=== PATIENT | female | born 1950 | race Caucasian/White ===

== ENCOUNTER 2022-10-27 16:05 | Emergency (ER) | payer OTHER ==
[~2022-10-27] VITALS: Ht 165.1 cm; Wt 117.9 kg
[2022-10-27] MEDS ORDERED: ATORVASTATIN CA40 MG PO (16:50)
[2022-10-27] MEDS ORDERED: ELIQUIS5 MG PO (16:50)
[2022-10-27] MEDS ORDERED: AMLODIPINE BESYL5 MG PO (16:50)
[2022-10-27] MEDS ORDERED: METOPROLOL TAR100 MG PO (16:50)
[2022-10-27] MEDS ORDERED: NORVASC2.5 MG PO (16:50)
== END 2022-10-27 18:25 | disposition home or self-care (01) ==
LOC: ER 16:05
DX: M25.572 Pain in left ankle and joints of left foot (principal); M25.571 Pain in right ankle and joints of right foot; I10 Essential (primary) hypertension